=== PATIENT | male | born 1970 | race Caucasian/White ===

== ENCOUNTER 2020-12-15 16:47 | Emergency (ER) | payer OTHER ==
[~2020-12-15] VITALS: Ht 175.3 cm; Wt 64.4 kg
[2020-12-15 17:26] LABS: URINE BLOOD 3+ (Negative); URINE GLUCOSE-RANDOM* NEGATIVE (Negative); URINE KETONES TRACE (Negative); URINE LEUKOCYTES-REFLEX TRACE (Negative); URINE NITRITE-REFLEX NEGATIVE (Negative); URINE PROTEIN (DIPSTICK) 2+ (Negative); URINE SPECIFIC GRAVITY <= 1.005 (1.005-1.035)
[2020-12-15 17:35] LABS: URINE CLARITY HAZY
[2020-12-15 17:36] LABS: URINE COLOR BROWNISH
[2020-12-15 17:37] LABS: ICTOTEST (BILI CONFIRMATORY) Negative (Negative); URINE BILIRUBIN NEGATIVE (Negative)
[2020-12-15 17:41] LABS: SQUAMOUS None Seen /LPF (0-3); URINE RBC >20 Many /HPF (NONE SEEN); URINE WBC-REFLEX 0-5 Rare /HPF (0-5)
[2020-12-15 17:42] LABS: CASTS None Seen /LPF (None Seen); CRYSTALS None Seen /LPF (None Seen)
[2020-12-15 19:09] LABS: ABSOLUTE NEUTROPHILS 11.7 thou/uL (1.4-8.2); BASOPHILS 0.4 % (0.0-2.0); EOSINOPHILS 0.1 % (0.0-3.0); HEMATOCRIT 47.1 % (42.0-52.0); HEMOGLOBIN 16.5 gm/dL (14.0-18.0); LYMPHOCYTES 4.4 % (24.0-44.0); MCH 31.4 pg (26.0-34.0); MCV 89.8 fL (80.0-100.0); MONOCYTES 3.8 % (1.0-8.0); PLATELET COUNT 202 thou/uL (150-400); POLYS 91.3 % (36.0-66.0); RBC 5.24 mil/uL (4.50-6.00); WBC 12.8 thou/uL (4.0-11.0)
[2020-12-15 19:17] LABS: CALCIUM 9.7 mg/dL (8.5-10.1); CREATININE 1.4 mg/dL (0.7-1.3); POTASSIUM 4.2 mmol/L (3.5-5.1)
[2020-12-15] MEDS ORDERED: FLOMAX0.4 MG PO (19:20)
[2020-12-15] MEDS ORDERED: HYDROCODON-ACE1 EAC7 PO (19:20)
[2020-12-15 20:30] VITALS: BP 170/80
== END 2020-12-15 19:32 | disposition home or self-care (01) ==
LOC: ER 16:47
PROVIDERS: Nurse Practitioner
DX: N20.0 Calculus of kidney (principal)